=== PATIENT | female | born 1950 | race Caucasian/White ===

== ENCOUNTER 2020-06-17 13:29 | Inpatient (IN) | payer MEDICARE, OTHER, SELFPAY ==
[2020-06-17] VITALS (9 sets, daily range): BP systolic 76–141; BP diastolic 57–78; PULSE 78–150; RESP 14–26; TEMP 36.6–37.8; O2SAT 92–100; BMI 21.4
--- NOTE | 2020-06-17 14:05 | XRR_ITS ---
PROCEDURE INFORMATION: Exam: XR Chest, 1 View Exam date and time: 06/17/2020 2:07 PM Age: 70 years old Clinical indication: Other: Low BP; Additional info: Dyspnea/cough TECHNIQUE: Imaging protocol: XR of the chest Views: 1 view. COMPARISON: CR Chest 1 [place] [id number] 02/07/2017 7:45 PM FINDINGS: Lungs: Large lung volumes suggesting COPD. No acute infiltrate. Pleural space: Unremarkable. No pleural effusion. No pneumothorax. Heart/Mediastinum: Unremarkable. No cardiomegaly. Bones/joints: Unremarkable. XR/XR chest 1V portable [id number] IMPRESSION: No acute findings. Possible COPD with large lung volumes.
--- NOTE | 2020-06-17 14:05 | ECG_ITS ---
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 Measurements Intervals [place] Rate: 98 P: 68 AR: 167 QRS: 28 QRSD: 69 T: 56 QT: 326 QTc: 417 Interpretive Statements SINUS RHYTHM MINIMAL ST DEPRESSION [0.025+ mV ST DEPRESSION] Compared to ECG 02/07/2017 19:29:32 ST (T wave) deviation now present Electronically Signed On 06-18-2020 9:25:09 CHAINSTITCH FELLED SEAM OPERATOR by Laurie Lopez M.D. [email or web address]TOTUS Solutionsgeorge regional hospitalNeuroware.[facility].icix/store/NU/[id number] f
--- NOTE | 2020-06-17 14:07 | ED_ITS ---
HPI - Arrhythmia/Palpitations General: Chief Complaint: Abdominal Pain Stated Complaint: low bp/ dizziness/ faintness Time Seen by Provider: 06/17/20 13:46 History of Present Illness: HPI narrative: 70-year-old female presents with complaint of rapid heart rate. She gets this more often than usual its not sustained like this. 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 She has some epigastric discomfort. She has had this several times in the past and is even had evaluation including cardiac monitors but they were never able to capture the arrhythmia. She denies any pain radiating to her neck back or arms. MD complaint: rapid heart beat and heart racing Onset (ago): hour(s) Duration: constant Severity: moderate Context: occurred during rest Arrhythmia history: SVT (She thinks they may have told her she had SVT previously) Associated symptoms: Reports anxiety; Deny cough, diaphoresis, muscle cramps, nausea, paresthesias, pre-syncope, sense of impending doom, short of breath, syncope or vomiting Review of Systems Const: Denies: diaphoresis ENMT: Denies: throat pain, ear or mastoid pain, nasal discharge or nasal congestion Card: Denies: syncope or pre-syncope Resp: Denies: dyspnea, productive cough or non-productive cough GI: Denies: nausea or vomiting : Denies: flank pain, difficulty voiding, dysuria, urinary frequency or urinary urgency Musc: Denies: muscle cramps Skin/Breast: Denies: rash or pruritus Psych: Reports: anxiety Physical Exam Const: COMMON NORMALS: no acute distress GENERAL APPEARANCE: cooperative and comfortable ORIENTATION/CONSCIOUSNESS: Yes awake, Yes oriented to person, Yes oriented to place and Yes oriented to time HENMT: COMMON NORMALS: normocephalic, atraumatic and hearing grossly normal bilaterally HEAD & SCALP: normocephalic and atraumatic Eye: COMMON NORMALS: Equal, round and reactive pupils present, EOMs intact bilaterally, conjunctivae normal and no scleral icterus CONJUNCTIVA: Yes conjunctivae normal PUPIL: Yes Equal, round and reactive pupils present Neck/C-Spine: COMMON NORMALS: no JVD Resp: COMMON NORMALS: normal respiratory effort, No retractions, No use of accessory muscles and clear to auscultation bilaterally AUSCULTATION: clear to auscultation bilaterally Cardio: COMMON NORMALS: no JVD RATE: tachycardic RHYTHM: abnormal rhythm (SVT) GI: COMMON NORMALS: Soft to palpation and No hepatosplenomegaly present AUSCULTATION: Yes normoactive bowel sounds PALPATION: Yes Soft to palpation, No Tenderness to palpation present (GI), No Guarding due to palpation present (GI) and Yes No hepatosplenomegaly present Extremity: COMMON NORMALS: normal to inspection, capillary refill normal, no clubbing, cyanosis or edema, no calf tenderness and no pedal edema Neuro: SENSORIUM/ORIENTATION: Yes oriented to person, Yes oriented to place and Yes oriented to time Skin: COMMON NORMALS: no rashes or lesions noted GENERAL SKIN EXAM: no rashes or lesions noted Course Vital Signs: Vital signs: Vital Signs Temperature 97.8 F 06/17/20 13:31 Pulse Rate 88 06/17/20 17:30 Respiratory Rate 18 06/17/20 17:30 Blood Pressure 120/71 06/17/20 17:30 Pulse Oximetry 100 06/17/20 17:30 MDM - Arrhythmia/Palpitations MDM Narrative: Medical decision making narrative: Initial attempt to convert her SVT with 6 mg of adenosine failed did convert on 12 mg. Her symptoms have resolved. Further work-up pending. Delta troponin came back positive patient is symptom-free at this time we will give her Lovenox and aspirin ordering to put her on observation discussed Dr. Sheridan she will follow. I suspect the elevated troponin could likely be from heart strain from the sustained SVT but she will require further evaluation Lab Data: Labs: Lab Results 06/17/20 06/17/20 06/17/20 Range/Units 13:55 13:55 13:55 WBC 5.3 (4.0-10.0) 10^3/ uL RBC 5.04 (4.1-5.3) 10^6/u L Hgb 15.3 (11.5-15.3) g/dL Hct 47.5 H (37.0-47.0) % MCV 94.2 (81-99) fL MCH 30.4 (28.0-34.0) pg MCHC 32.2 (30.0-36.0) g/dL RDW 11.9 L (12.1-15.1) % Plt Count 244 (130-400) 10^3/c mm MPV 10.7 H (7.4-10.4) fL Neut % (Auto) 68.5 % Lymph % (Auto) 17.5 % [place] % (Auto) 12.6 % Eos % (Auto) 0.2 % Baso % (Auto) 1.0 % Neut # (Auto) 3.60 (1.8-7.7) 10^3/u L Lymph # (Auto) 0.9 (0.8-4.8) 10^3/u L [place] # (Auto) 0.7 (0.2-0.9) 10^3/u L Eos # (Auto) 0.0 (0.0-0.8) 10^3/u L Baso # (Auto) 0.1 (0.0-0.1) 10^3/u L Nucleated RBC % (a uto) 0 % Nucleated RBCs # 0.0 /100WBC Sodium 138 (136-145) mmol/L Potassium 4.4 (3.5-5.1) mmol/L Chloride 99 (98-107) mmol/L Carbon Dioxide 27 (22-29) mmol/L Anion Gap 16.4 (5-19) BUN 11 (8-23) mg/dL Creatinine 0.9 (0.5-0.9) mg/dL GFR Calculation Not Reportable Glucose 142 H (65-115) mg/dL Calculated Osmolal ity 288 (285-295) mOsm/k g Calcium 9.5 (8.5-10.5) mg/dL Magnesium 1.9 (1.7-2.3) mg/dL Total Bilirubin 0.5 (0.15-1.2) mg/dL AST 27 (0-32) U/L ALT 22 (0-33) U/L Alkaline Phosphata se 94 (35-105) IU/L Troponin T Baselin e 49 H (0-10) ng/L Troponin T 120 Min [place] (0-10) ng/L Delta Troponin T (0-10) ABS# Total Protein 6.8 (6.6-8.7) g/dL Albumin 4.6 (3.5-5.2) g/dL Globulin 2.2 (1.3-4.6) g/dL TSH 1.78 (0.27-4.20) uIU/ mL Free T4 1.10 (0.82-1.77) ng/d L 06/17/20 Range/Units 16:10 WBC (4.0-10.0) 10^3/ uL RBC (4.1-5.3) 10^6/u L Hgb (11.5-15.3) g/dL Hct (37.0-47.0) % MCV (81-99) fL MCH (28.0-34.0) pg MCHC (30.0-36.0) g/dL RDW (12.1-15.1) % Plt Count (130-400) 10^3/c mm MPV (7.4-10.4) fL Neut % (Auto) % Lymph % (Auto) % [place] % (Auto) % Eos % (Auto) % Baso % (Auto) % Neut # (Auto) (1.8-7.7) 10^3/u L Lymph # (Auto) (0.8-4.8) 10^3/u L [place] # (Auto) (0.2-0.9) 10^3/u L Eos # (Auto) (0.0-0.8) 10^3/u L Baso # (Auto) (0.0-0.1) 10^3/u L Nucleated RBC % (a uto) % Nucleated RBCs # /100WBC Sodium (136-145) mmol/L Potassium (3.5-5.1) mmol/L Chloride (98-107) mmol/L Carbon Dioxide (22-29) mmol/L Anion Gap (5-19) BUN (8-23) mg/dL Creatinine (0.5-0.9) mg/dL GFR Calculation Glucose (65-115) mg/dL Calculated Osmolal ity (285-295) mOsm/k g Calcium (8.5-10.5) mg/dL Magnesium (1.7-2.3) mg/dL Total Bilirubin (0.15-1.2) mg/dL AST (0-32) U/L ALT (0-33) U/L Alkaline Phosphata se (35-105) IU/L Troponin T Baselin e (0-10) ng/L Troponin T 120 Min [place] 72.68 H (0-10) ng/L Delta Troponin T 23.68 H* (0-10) ABS# Total Protein (6.6-8.7) g/dL Albumin (3.5-5.2) g/dL Globulin (1.3-4.6) g/dL TSH (0.27-4.20) uIU/ mL Free T4 (0.82-1.77) ng/d L Discharge Plan Discharge Patient Disposition: Placed in Observation Clinical Impression: SVT (supraventricular tachycardia), Elevated troponin level Condition: Stable Referrals: FADIA ARIZA MD [Primary Care Provider] - Coding Level of Care Code ED Paint Factory Worker for g Fwd Exam Comprehensive
[2020-06-17] MEDS: adenosine 3 mg/mL SDV 2mL 6 MG IVP (14:25)
[2020-06-17] MEDS: adenosine 3 mg/mL SDV 2mL 12 MG IVP (14:26)
[2020-06-17 14:46] LABS: Basophils # 0.1 10^3/uL (0.0-0.1); Eosinophils % 0.2 %; Hematocrit 47.5 % (37.0-47.0); Hemoglobin 15.3 g/dL (11.5-15.3); Lymphocytes # 0.9 10^3/uL (0.8-4.8); Lymphocytes % 17.5 %; Mean Corpuscular HGB Conc 32.2 g/dL (30.0-36.0); Mean Corpuscular Hemoglobin 30.4 pg (28.0-34.0); Mean Corpuscular Volume 94.2 fL (81-99); Mean Platelet Volume 10.7 fL (7.4-10.4); Monocytes # 0.7 10^3/uL (0.2-0.9); Monocytes % 12.6 %; Neutrophils % 68.5 %; Nucleated Red Blood Cells % 0 %; Platelet Count 244 10^3/cmm (130-400); Red Blood Count 5.04 10^6/uL (4.1-5.3); Red Cell Distribution Width 11.9 % (12.1-15.1); White Blood Count 5.3 10^3/uL (4.0-10.0)
[2020-06-17 15:15] LABS: Troponin(5th) Baseline 49 ng/L (0-10)
[2020-06-17 15:23] LABS: Alanine Aminotransferase 22 U/L (0-33); Albumin Level 4.6 g/dL (3.5-5.2); Alkaline Phosphatase 94 IU/L (35-105); Anion Gap 16.4 (5-19); Aspartate Amino Transferase 27 U/L (0-32); Blood Urea Nitrogen 11 mg/dL (8-23); Calcium 9.5 mg/dL (8.5-10.5); Carbon Dioxide 27 mmol/L (22-29); Chloride 99 mmol/L (98-107); Globulin 2.2 g/dL (1.3-4.6); Glucose 142 mg/dL (65-115); Magnesium 1.9 mg/dL (1.7-2.3); Osmolality Calculated 288 mOsm/kg (285-295); Potassium 4.4 mmol/L (3.5-5.1); Sodium 138 mmol/L (136-145); Thyroid Stimulating Hormone 1.78 uIU/mL (0.27-4.20); Total Bilirubin 0.5 mg/dL (0.15-1.2); Total Protein 6.8 g/dL (6.6-8.7)
--- NOTE | 2020-06-17 16:05 | ECG_ITS ---
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 Measurements Intervals [place] Rate: 87 P: 69 NC: 176 QRS: 31 QRSD: 72 T: 50 QT: 379 QTc: 457 Interpretive Statements SINUS RHYTHM WITH FREQUENT VENTRICULAR PREMATURE COMPLEXES NONSPECIFIC T-WAVE ABNORMALITY ABNORMAL RHYTHM ECG Compared to ECG 06/17/2020 14:00:30 Ventricular premature complex(es) now present T-wave abnormality now present ST (T wave) deviation no longer present Electronically Signed On 06-18-2020 9:29:22 BALLAST INSPECTOR by Laurie Lopez M.D. [email or web address] ([email or web address] medical centerOnyvaxhighland district hospital.myBarrister/store/ov/[id number]
[2020-06-17 16:48] LABS: Troponin 5 2HR 72.68 ng/L (0-10)
[2020-06-17 16:49] LABS: Troponin 5 2HR Delta 23.68 ABS# (0-10)
[2020-06-17] MEDS: enoxaparin 60 mg/0.6 mL Syringe SUBCUT (17:28)
[2020-06-17] MEDS: aspirin 81 mg Chew Tablet 324 MG PO (17:28)
--- NOTE | 2020-06-17 19:58 | PC.NURSE ---
Dr. Woo notified of patient getting Lovenox at 1730 in ED. There is a Lovenox dose due now. Ordered to change to get dose 24 hours after previous dose.
--- NOTE | 2020-06-17 19:59 | PM.HP ---
Providers/Chief Complaint Admitting Physician: Katia Andrew MD Primary Care Provider: Lisbet Chandra MD Chief Complaint: low bp/ dizzyness/ faintness History of Present Illness Marisa Iverson is a 70 year old female with no significant past medical history, who presents to [facility] due to complaints of fatigue, malaise, weakness, this morning. Patient tells me that she has been doing well recently, has had no significant ER visits, no recent hospitalization, no significant past medical history. She woke up this morning, she followed her usual routine, she fed her cat, but she felt quite profoundly weak, fatigued, malaise, which is very unusual for her. She went back to bed, slept for a little bit. It woke up again, it continued to feel fatigue. She did have some chest soreness in the left chest, nonradiating, no lightheadedness, no dizziness, no diaphoresis, no nausea, no vomiting, no epigastric discomfort, no back pain, she did have some feeling of palpitations but very minor. She did not think much of her symptoms, and because of her fatigue, she went back to bed, she slept for several hours. But again woke up, feeling again fatigued and tired, so she came to the emergency room. Patient tells me that in the past she has had issues with fast heart rate, was put on metoprolol, this was roughly maybe 3 years ago, but stopped taking the medication for 2 years, denies a history of any tachyarrhythmia or arrhythmia in the past. Denies a history of chest pain, no history of stress testing, no history of cardiovascular disease, no history of strokes, no history of COPD, no history of drug use, former smoker, denies any use of herbal supplementations. In the emergency room she was found to have SVT, required 6 mg of adenosine, did not convert, 12 mg of adenosine converted her into normal sinus rhythm, given her troponin elevations hospitalist team was called for admission. On the floor she was noted to have a temperature of 100, she is relatively asymptomatic, no fever for she is noticed, no cough, no shortness of breath, she does have periodic epigastric discomfort, nothing more than the usual, no known exposure to COVID-19. Review of Systems Const: Reports: fatigue and malaise; Denies: fever(s) or chills Eyes: Denies: change in vision or blurry vision ENMT: Denies: nasal congestion Resp: Denies: dyspnea, productive cough, non-productive cough or wheezing GI: Denies: abdominal pain, nausea, vomiting, hematemesis, diarrhea, constipation, hematochezia or melena : Denies: flank pain, dysuria or urinary frequency Musc: Denies: neck pain or back pain Skin/Breast: Denies: rash Neuro: Denies: headache(s), dizziness or vertigo Psych: Denies: anxiety or depression Endo: Denies: polyuria or polydipsia Medications/Allergies Home Medications Medication Instructions Recorded Confirmed Last Taken Type No Known Home Medications 06/17/20 06/17/20 Unknown History Allergies Allergy/AdvReac Type Severity Reaction Status Date / Time No Known Allergies Allergy Verified 06/17/20 13:37 PFSH Acute PFSH: Medical History (Updated 06/17/20 @ 20:07 by Juan Woo MD) No pertinent past medical history Surgical History (Updated 06/17/20 @ 20:05 by Juan Woo MD) No pertinent past surgical history Family History (Updated 06/17/20 @ 20:05 by Juan Woo MD) Mother Alzheimer's dementia Father CAD (coronary artery disease) Social History (Updated 06/17/20 @ 20:05 by Juan Woo MD) Smoking and tobacco status: former smoker Alcohol intake: never Substance/Drug Use: never Vitals/I&O/Wt Last Vital Signs Temp 100.0 F H 06/17/20 18:56 Pulse 85 06/17/20 18:56 Resp 18 06/17/20 18:56 BP 123/63 06/17/20 18:56 Pulse Ox 93 06/17/20 18:56 Weight last 48 hrs Weight 60.328 kg Physical Exam Const: COMMON NORMALS: no acute distress and patient oriented x3 GENERAL APPEARANCE: cooperative and comfortable HENMT: COMMON NORMALS: normocephalic HEAD & SCALP: normocephalic Eye: COMMON NORMALS: Equal, round and reactive pupils present and EOMs intact bilaterally GENERAL EYE: appearance normal, both eyes and all related structures PUPIL: Yes Equal, round and reactive pupils present Neck/C-Spine: COMMON NORMALS: full ROM, no lymphadenopathy, no JVD and Thyroid normal THYROID: Thyroid normal Lymph: LYMPHATIC: no lymphadenopathy noted Resp: COMMON NORMALS: normal respiratory effort, No retractions, No use of accessory muscles and clear to auscultation bilaterally AUSCULTATION: clear to auscultation bilaterally Cardio: COMMON NORMALS: no JVD, regular rate, regular rhythm, S1 normal heart sound present, S2 normal heart sound present, No gallops present (Cardio), No clicks present (Cardio) and No murmurs present (Cardio) RATE: regular rate RHYTHM: regular rhythm HEART SOUNDS: S1 normal heart sound present and S2 normal heart sound present GI: COMMON NORMALS: Normal to inspection, nondistended, normoactive bowel sounds present, Soft to palpation, non-tender and No hepatosplenomegaly present PALPATION: Yes Soft to palpation and Yes No hepatosplenomegaly present Extremity: COMMON NORMALS: normal to inspection, full ROM and no pedal edema Neuro: COMMON NORMALS: patient oriented x3, CN's II-XII intact bilaterally, moves all extremities and no focal motor deficits Psych: COMMON NORMALS: mental status grossly normal, Normal thought process present and cooperative THOUGHT PROCESS: Normal thought process present Data : 06/17/20 13:55 06/17/20 13:55 A&P Assessment and plan (1) SVT (supraventricular tachycardia): -Aborted with adenosine 6 mg, 12 mg -Currently normal sinus rhythm -We will continue telemetry monitoring Status: Acute (2) NSTEMI (non-ST elevated myocardial infarction): -No complaints of chest pain -Baseline troponin 49, 120 minutes 72.68, delta 22.68 -EKG does show minimal ST depressions in V5 V6 -We will continue to monitor serial EKGs, serial troponins, telemetry, monitor for chest pain -Start aspirin, statin -We will order cardiac echocardiogram -Have patient follow-up with cardiology outpatient for consideration of stress testing -No significant cardiovascular risk factors except age and family history -Full code -Lovenox for DVT prophylaxis Status: Acute (3) Fever: -Temperature 100 -She is relatively asymptomatic, hold off on further testing, she continues to have fevers we will do Covid and testing and flu testing Status: Acute Attestations Medical Necessity Statement*: Patient requires hospitalization, patient with observation, for SVT, NSTEMI Coding Level of Care Code Acute Director Community Organization for Chg Fwd Diagnoses SVT (supraventricular tachycardia) I47.1 NSTEMI (non-ST elevated myocardial infarction) I21.4 Fever R50.9
--- NOTE | 2020-06-17 20:05 | ECG_ITS ---
[facility] Test Date: 2020-06-17 Pat Name: Marisa Iverson Department: Room: 112 Gender: Female Comb Tender: checo GRANADOSB: 1950 Requested By: Jesus Manuel Blanton Order Number: [id number] Reading MD: Laurie Lopez M.D. Measurements Intervals [place] Rate: 75 P: 67 AK: 196 QRS: 44 QRSD: 66 T: 49 QT: 396 QTc: 443 Interpretive Statements SINUS RHYTHM WITH OCCASIONAL VENTRICULAR PREMATURE COMPLEXES Compared to ECG 06/17/2020 17:52:46 T-wave abnormality no longer present Electronically Signed On 06-18-2020 9:28:50 MOBILE APPLICATION DEVELOPER by Laurie Lopez M.D. [email or web address]/[id number]
[2020-06-17 20:12] LABS: Troponin 5 6HR 89.69 ng/L (0-10)
[2020-06-17 20:18] LABS: Troponin 5 6HR Delta 40.69 ng/L (0-12)
[2020-06-17] MEDS: atorvastatin 40 mg Tablet PO (20:23)
--- NOTE | 2020-06-17 20:24 | PC.NURSE ---
Patient arrived to the floor from the ED after report was received via phone. Patient is alert and oriented and ambulatory. Patient does not have any pain or any other complaints at this time. Patient is in SR on monitor and on RA. Patient has been oriented to her room and has call light within reach.
[2020-06-17 20:47] LABS: Procalcitonin 0.09 ng/mL (0-0.5)
--- NOTE | 2020-06-17 23:26 | PC.NURSE ---
Patient has no complaints at this time. Will monitor.
[2020-06-18] VITALS (7 sets, daily range): BP systolic 108–136; BP diastolic 61–72; PULSE 73–88; RESP 13–27; TEMP 36.8–37.8; O2SAT 92–97
[2020-06-18 00:49] LABS: Add Urine Microscopic? YES; Bilirubin Urine Neg (Negative); Blood Urine Neg (Negative); Glucose Urine UA Norm (Normal); Ketones Urine 1+ (Negative); Leukocyte Esterase Urine Trace (Negative); Nitrate Urine Negative (Negative); Protein Urine Neg (Negative); Specific Gravity, Urine 1.025 (1.005-1.030); Urine Appearance Clear (CLEAR); Urine Color Yellow (Yellow); Urobilinogen Urine Norm (Negative); pH Urine 5 (5-7)
[2020-06-18 00:50] LABS: Add Urine Culture? No; Bacteria Urine TRACE /hpf; Hyaline Casts Urine 0-4 /lpf; Mucus Urine 4+ /hpf; RBC Urine 0-4 /hpf (0-2)
[2020-06-18] MEDS: enoxaparin 60 mg/0.6 mL Syringe SUBCUT ×2 (04:39→17:14)
[2020-06-18 05:51] LABS: Basophils % 0.9 %; Eosinophils % 0.6 %; Hemoglobin 13.6 g/dL (11.5-15.3); Lymphocytes # 1.1 10^3/uL (0.8-4.8); Lymphocytes % 30.1 %; Mean Corpuscular HGB Conc 32.4 g/dL (30.0-36.0); Mean Corpuscular Hemoglobin 30.5 pg (28.0-34.0); Mean Corpuscular Volume 94.2 fL (81-99); Mean Platelet Volume 10.1 fL (7.4-10.4); Monocytes # 0.5 10^3/uL (0.2-0.9); Monocytes % 15.1 %; Neutrophils # 1.87 10^3/uL (1.8-7.7); Nucleated Red Blood Cells % 0 %; Platelet Count 192 10^3/cmm (130-400); Red Blood Count 4.46 10^6/uL (4.1-5.3); Red Cell Distribution Width 11.8 % (12.1-15.1); White Blood Count 3.5 10^3/uL (4.0-10.0)
[2020-06-18 06:17] LABS: Alanine Aminotransferase 17 U/L (0-33); Albumin Level 3.7 g/dL (3.5-5.2); Alkaline Phosphatase 71 IU/L (35-105); Aspartate Amino Transferase 24 U/L (0-32); Blood Urea Nitrogen 14 mg/dL (8-23); Calcium 8.8 mg/dL (8.5-10.5); Carbon Dioxide 26 mmol/L (22-29); Chloride 102 mmol/L (98-107); Globulin 1.9 g/dL (1.3-4.6); Glucose 87 mg/dL (65-115); Osmolality Calculated 284 mOsm/kg (285-295); Phosphorus 4.4 mg/dL (2.5-4.5); Sodium 137 mmol/L (136-145); Total Bilirubin 0.4 mg/dL (0.15-1.2); Total Protein 5.6 g/dL (6.6-8.7)
[2020-06-18] MEDS: aspirin 81 mg EC Tablet PO (08:32)
[2020-06-18] MEDS: pneumococcal (23 valent) SDV 0.5 mL IM (08:32)
--- NOTE | 2020-06-18 09:30 | P.PN_ITS ---
Subjective Subjective: Interval history: Hemodynamically stable, low grade temp (100 F), HR wnl, on therapeutic lovenox due to NSTEMI. She is resting comfortably in bed, no apparent distress, no chest discomfort. Echo noted. Case discussed with Dr. Lopez and will plan on stress testing tomorrow. Medications: Reviewed: Yes Medication Review Details: Current Medications Generic Name Dose Route Start Last Admin Trade Name Saira PRN Reason Stop Dose Admin Aspirin 81 mg 06/17/20 20:10 06/18/20 08:32 Aspirin Ec PO 81 mg DAILY YUN Administration Atorvastatin Calci um 40 mg 06/17/20 21:00 06/17/20 20:23 Lipitor PO 40 mg BEDTIME YUN Administration Enoxaparin Sodium 60 mg 06/18/20 05:30 06/18/20 04:39 Lovenox SUBCUT 60 mg Q12H YUN Administration Vitals/I&O/Wt Last Vital Signs Temp 100.0 F H 06/18/20 08:02 Pulse 86 06/18/20 08:02 Resp 18 06/18/20 08:02 BP 116/66 06/18/20 08:02 Pulse Ox 97 06/18/20 08:02 06/17/20 06/18/20 06/18/20 22:59 06:59 14:59 Intake Total 300 / 300 240 / 240 Output Total 100 / 100 Balance 200 / 200 240 / 240 Weight last 48 hrs Weight 60.328 kg Physical Exam Const: COMMON NORMALS: no acute distress, patient oriented x3 and alert GENERAL APPEARANCE: cooperative and comfortable ORIENTATION/CONSCIOUSNESS: Yes awake OTHER: -looks appropriate for age HENMT: COMMON NORMALS: normocephalic, atraumatic, hearing grossly normal bilaterally and moist oral mucous membranes HEAD & SCALP: normocephalic and atraumatic Eye: COMMON NORMALS: Equal, round and reactive pupils present, EOMs intact bilaterally and conjunctivae normal CONJUNCTIVA: Yes conjunctivae normal PUPIL: Yes Equal, round and reactive pupils present Neck/C-Spine: COMMON NORMALS: full ROM GENERAL: Yes normal visual inspection and Yes trachea midline Resp: COMMON NORMALS: normal respiratory effort, No retractions, No use of accessory muscles and clear to auscultation bilaterally EFFORT & INSPECTION: Yes able to speak in complete sentences, Yes symmetric chest movement and No tachypneic AUSCULTATION: clear to auscultation bilaterally OTHER: -on RA Cardio: COMMON NORMALS: regular rate, regular rhythm, S1 normal heart sound present, S2 normal heart sound present and No murmurs present (Cardio) RATE: regular rate RHYTHM: regular rhythm HEART SOUNDS: S1 normal heart sound present and S2 normal heart sound present GI: COMMON NORMALS: Normal to inspection, nondistended, normoactive bowel sounds present, Soft to palpation and non-tender PALPATION: Yes Soft to palpation Extremity: COMMON NORMALS: normal to inspection, full ROM and no clubbing, cyanosis or edema; negative for no pedal edema Neuro: COMMON NORMALS: patient oriented x3, moves all extremities, no focal motor deficits, no sensory deficits noted and gait normal SENSORIUM/ORIENTATION: Yes alert Psych: COMMON NORMALS: mental status grossly normal, Normal thought process present, cooperative, normal affect and speech normal SPEECH: Yes normal speech THOUGHT PROCESS: Normal thought process present Skin: COMMON NORMALS: no rashes or lesions noted, no jaundice, no petechiae and no mottling GENERAL SKIN EXAM: no rashes or lesions noted Data : 06/18/20 05:24 06/18/20 05:24 A&P Assessment and plan (1) NSTEMI (non-ST elevated myocardial infarction): -noted troponin elevation with significant delta of 41 -minimal ST depression on initial ECG -telemetry monitoring -VSS; continue to monitor -on therapeutic lovenox, ASA, statin -Echo: EF=68%, no RWMA, trace to mild TR, trace IL -Cardiology evaluation by Dr. Lopez appreciated; stress testing tomorrow, keep NPO after midnight Status: Acute (2) SVT (supraventricular tachycardia): -converted to NSR after 12 mg dose of adenosine given in ED -telemetry monitoring -K-4, Mg-2, TSH wnl Status: Acute (3) Fever: -low grade temp, no leukocytosis -UA indicative of infection, f/u urine cx -CXR unremarkable -start on ceftriaxone -continue to monitor vital signs Status: Acute Qualifiers: Fever type: unspecified Qualified Code(s): R50.9 - Fever, unspecified Additional A&P Information -regular diet as tolerated -DVT ppx not needed as on therapeutic lovenox -Dispo: home -Code status: FULL code -change to inpatient status due to need for additional workup including nuclear stress testing. Attestations Medical Necessity Statement*: Patient requires hospitalization for continued management of NSTEMI including stress testing, treatment of UTI. Time Spent in Patient Care: 16 - 35 minutes (>than 50% of time spent in counselling and/or direct pt care on unit) . Coding Level of Care Code Acute Baggagemaster for [facility] Fwd Exam Comprehensive Diagnoses NSTEMI (non-ST elevated myocardial infarction) I21.4 SVT (supraventricular tachycardia) I47.1 Fever R50.9 Fever type: unspecified
--- NOTE | 2020-06-18 09:37 | PM.CONSULT ---
Providers/Reason For Consult Consulting Physican/Specialty*: Dr. Lopez, Cardiology Reason for Consult*: Elevated troponin and SVT Attending Physician: Katia Andrew MD Primary Care Provider: Lisbet Chandra MD History of Present Illness History of Present Illness Marisa Iverson is a 70 year old female with PMhx of palpitation previously on metoporlol and was seen by Dr. Nguyen at [facility]. She keeps a diary of her episodes and recently her episodes have been on last Friday and then yesterday morning she woke up feeling bad, fatigued and tired. She could not make her breakfast. Her HR was in 150-160's on the pulse ox and she presented to ER for further evaluation. I do have EKG strips to support it. It seems like per documentation she was in SVT and recieved adenosine 6 mg followed by 12 mg lead to conversion to NSR. EKG's showing NSR with occasional PVC's. No significant ST-T wave changes. Troponin T was elevated and hence I have been asked to evaluate the patient. Review of Systems General: Reports: 10 or more systems reviewed and unremarkable except in HPI and below Const: Reports: fatigue; Denies: fever(s) or chills Eyes: Denies: blurry vision ENMT: Denies: epistaxis Card: Denies: chest pain Resp: Denies: dyspnea GI: Denies: abdominal pain, nausea or vomiting : Denies: hematuria Musc: Denies: extremity swelling Skin/Breast: Denies: rash Neuro: Denies: headache(s) Psych: Denies: anxiety or depression Endo: Denies: polyuria Cam/Lymph: Denies: petechiae or purpura All/Imm: Denies: urticaria Meds/Allergies Home Medications and Allergies Home Medications Medication Instructions Recorded Confirmed Last Taken Type No Known Home Medications 06/17/20 06/17/20 Unknown History Allergies Allergy/AdvReac Type Severity Reaction Status Date / Time No Known Allergies Allergy Verified 06/17/20 20:25 Current Medications Current Medications Generic Name Dose Route Start Last Admin Trade Name Freq PRN Reason Stop Dose Admin Aspirin 81 mg 06/17/20 20:10 06/18/20 08:32 Aspirin Ec PO 81 mg DAILY YUN Administration Atorvastatin Calcium 40 mg 06/17/20 21:00 06/17/20 20:23 Lipitor PO 40 mg BEDTIME YUN Administration Enoxaparin Sodium 60 mg 06/18/20 05:30 06/18/20 04:39 Lovenox SUBCUT 60 mg Q12H YUN Administration PFSH Acute PFSH: Medical History (Updated 06/18/20 @ 09:34 by Katia Andrew MD) No pertinent past medical history Surgical History No pertinent past surgical history Family History Mother Alzheimer's dementia Father CAD (coronary artery disease) Social History Smoking and tobacco status: former smoker Alcohol intake: never Substance/Drug Use: never Vitals/I&O/Wt Last Vital Signs Temp 100.0 F H 06/18/20 08:02 Pulse 86 06/18/20 08:02 Resp 18 06/18/20 08:02 BP 116/66 06/18/20 08:02 Pulse Ox 97 06/18/20 08:02 06/17/20 06/18/20 06/18/20 22:59 06:59 14:59 Intake Total 300 / 300 240 / 240 Output Total 100 / 100 Balance 200 / 200 240 / 240 Weight last 48 hrs Weight 133 lb Physical Exam Const: COMMON NORMALS: no acute distress, patient oriented x3 and alert GENERAL APPEARANCE: cooperative, comfortable, well kempt and well hydrated HENMT: COMMON NORMALS: normocephalic, atraumatic, hearing grossly normal bilaterally, external ears normal and Normal external nose present HEAD & SCALP: normocephalic and atraumatic FACE & SINUS: normal facial exam NOSE: Normal external nose present EXTERNAL EAR: Yes external ears normal Eye: COMMON NORMALS: Equal, round and reactive pupils present, EOMs intact bilaterally, conjunctivae normal and no scleral icterus GENERAL EYE: appearance normal, both eyes and all related structures ALIGNMENT: Yes alignment normal CONJUNCTIVA: Yes conjunctivae normal SCLERA: sclerae normal PUPIL: Yes Equal, round and reactive pupils present Neck/C-Spine: COMMON NORMALS: no lymphadenopathy, supple, no JVD and Thyroid normal GENERAL: Yes normal visual inspection, Yes trachea midline and No Mass present (neck) THYROID: Thyroid normal CAROTIDS: Yes normal carotid upstroke CERVICAL SPINE: Yes cervical ROM normal Lymph: LYMPHATIC: no lymphadenopathy noted Chest: COMMONS NORMALS: normal inspection of the chest and normal palpation of entire chest wall CHEST: Yes Symmetrical chest wall rise, No mass, No tenderness, No Surgical scars present (Chest) and No rash BREAST/AXILLA INSPECTION: Yes normal inspection of the axillae Resp: COMMON NORMALS: clear to auscultation bilaterally EFFORT & INSPECTION: Yes able to speak in complete sentences, No respiratory distress and No labored AUSCULTATION: clear to auscultation bilaterally, no crackles, no rales, no rhonchi, no wheezes and vesicular breath sounds Cardio: COMMON NORMALS: no JVD, regular rate, regular rhythm, S1 normal heart sound present, S2 normal heart sound present and Peripheral pulses 2+ throughout PALPATION: normal PMI RATE: regular rate RHYTHM: regular rhythm HEART SOUNDS: S1 normal heart sound present, S2 normal heart sound present, no gallops and no murmurs BRUITS: no abdominal aortic bruits and no carotid bruits PERIPHERAL PULSES: Peripheral pulses 2+ throughout, radial pulses present, posterior tibial pulses present and dorsalis pedis present GI: COMMON NORMALS: Soft to palpation and No hepatosplenomegaly present AUSCULTATION: Yes normoactive bowel sounds PALPATION: Yes Soft to palpation, No Tenderness to palpation present (GI), No Guarding due to palpation present (GI), No Rigid due to palpation, Yes No hepatosplenomegaly present, No Pulsatile mass present and No Ascites present PERCUSSION: tympanic to percussion Extremity: GENERAL: No calf tenderness, No cyanosis, Yes edema and No pallor Neuro: COMMON NORMALS: patient oriented x3, CN's II-XII intact bilaterally, no focal motor deficits, no sensory deficits noted and gait normal SENSORIUM/ORIENTATION: Yes alert Psych: COMMON NORMALS: Normal thought process present and speech normal APPEARANCE: Yes well kempt SPEECH: Yes normal speech MOOD & AFFECT: Yes euthymic mood THOUGHT PROCESS: Normal thought process present THOUGHT CONTENT: Yes Normal thought content present Skin: HAIR: normal NAILS: normal and no clubbing Data Labs: Other Labs: Laboratory Tests 06/17/20 06/17/20 06/17/20 13:55 16:10 19:33 Troponin T Baselin e 49 H Troponin T 120 Min nicholas 72.68 H Troponin T Hi Sens 6Hr 89.69 H A&P Assessment and plan (1) SVT (supraventricular tachycardia): Vagal maneuvers taught -I will start her on low dose metoprolol on discharge. Status: Acute (2) Elevated troponin level: Likely NSTEMI type 2 -continue ASA, statin. -Normal LV function and no RWMA on echo. -Plan for exercise MPI tomorrow. Status: Acute (3) Fever: Status: Acute Qualifiers: Fever type: unspecified Qualified Code(s): R50.9 - Fever, unspecified Additional A&P Information Former smoker Thank you for allowing me to participate in patient's care. Please feel free to call with questions or concerns. Consult Attestations Medical Necessity Statement: Needs hospital stay for SVT and NSTEMI Time Spent in Patient Care: Greater than 35 minutes (>than 50% of time spent in counselling and/or direct pt care on unit). Coding Level of Care Code Acute Bread And Pastry Baker for Forrest Ahumada Diagnoses SVT (supraventricular tachycardia) I47.1 Elevated troponin level R77.8 Fever R50.9 Fever type: unspecified
[2020-06-18] MEDS: cefTRIAXone 1,000 MG in sodium chloride 0.9% (plus) 50 ML 100 MG IV (10:03)
[2020-06-18 12:16] LABS: Troponin T (5th) Once 61 ng/L (0-10)
--- NOTE | 2020-06-18 18:11 | PC.NURSE ---
Patient done well this shift no complaints of chest pain or irregular Heart rate or beat noted patient vital signs have been stable although patient had a mild temp through out shift. patient has done well with ambulation and personal hygiene patient is alert and oriented. patient verbalizes plan of care for stress test tomorrow.
[2020-06-18] MEDS: atorvastatin 40 mg Tablet PO (19:15)
--- NOTE | 2020-06-18 19:40 | PC.NURSE ---
Patient has no complaints at this time.
--- NOTE | 2020-06-18 20:08 | USCV_ITS ---
Marisa Iverson Age: 70 Gender: F : 1950 Exam Date: 06/18/2020 09:25 Ordering Phys: Juan Woo MD Technologist: Miri Cerrato [place] [facility] [place]: SOB BP: 116 / 66 HR: 82 Rhythm: Sinus Technical Quality: Adequate MEASUREMENTS (Male / Female) Normal Values 2D ECHO LV Diastolic Diameter PLAX 3.1 cm 4.2 - 5.9 / 3.9 - 5.3 cm LV Systolic Diameter PLAX 2.3 cm LV Chamber Size 2.9 cm IVS Diastolic Thickness 1.7 cm 0.6 - 1.0 / 0.6 - 0.9 cm IVS Systolic Thickness 1.8 cm LVPW Diastolic Thickness 0.8 cm 0.6 - 1.0 / 0.6 - 0.9 cm LVPW Systolic Thickness 1.3 cm RV Chamber Size 2.9 cm LVOT Diameter 2.0 cm LV Ejection Fraction 2D Teich 52.6 % LV Ejection Fraction MOD 2C 63.9 % LV Ejection Fraction 2C AL 67.6 % LA Diameter 2.2 cm LA Width 1.8 cm LA Height 3.3 cm RA Width 2.2 cm RA Height 3.5 cm Aorta at Sinotubular Diameter 2.7 cm M-MODE LV Diastolic Diameter MM 3.1 cm 4.2 - 5.9 / 3.9 - 5.3 cm LV Systolic Diameter MM 2.0 cm LV Ejection Fraction MM Teich 63.6 % IVS Diastolic Thickness MM 1.2 cm 0.6 - 1.0 / 0.6 - 0.9 cm IVS Systolic Thickness MM 1.4 cm LVPW Diastolic Thickness MM 1.1 cm 0.6 - 1.0 / 0.6 - 0.9 cm LVPW Systolic Thickness MM 1.3 cm RV Diastolic Diameter MM 1.6 cm Aortic Annulus Diameter 2.9 cm LA Ao Ratio MM 0.7 MV E Point Septal Separation 0.5 cm DOPPLER AV Peak Velocity 104.0 cm/s LVOT Peak Velocity 89.0 cm/s AV Area Cont Eq vti 3.3 cm squared AV Area Cont Eq pk 2.7 cm squared MV Area PHT 2.6 cm squared Mitral E to A Ratio 0.7 MV E' Velocity 26.5 cm/s Mitral E to MV E' Ratio 6.2 Mitral E to LV E' Lateral Ratio 5.4 Mitral E to LV E' Septal Ratio 7.4 TR Peak Velocity 189.8 cm/s TR Peak Gradient 14.4 mmHg TV Peak E Velocity 53.0 cm/s Right Atrial Pressure 3.0 mmHg Pulmonary Artery Systolic Pressu 17.4 mmHg PV Peak Velocity 59.0 cm/s RV Acceleration Time 0.1 s RV Ejection Time 0.3 s RV AcT/ET 0.4 FINDINGS Left Ventricle Normal left ventricular size, systolic function and wall thickness, with no regional wall motion abnormalities. Left ventricular ejection fraction is estimated at 68 %. Normal diastolic function. Right Ventricle Normal right ventricular size and systolic function. Right ventricular systolic pressure 17.4 mmHg. Right Atrium Normal right atrial size. Left Atrium Normal left atrial size. Mitral Valve Structurally normal mitral valve. No mitral valve stenosis. No mitral valve regurgitation. Aortic Valve Structurally normal trileaflet aortic valve. No aortic valve stenosis. No aortic valve regurgitation. Tricuspid Valve Structurally normal tricuspid valve. No tricuspid valve stenosis. Trace to mild tricuspid valve regurgitation. Pulmonic Valve Structurally normal pulmonic valve. No pulmonary valve stenosis. Trace pulmonary valve regurgitation. Pericardium No pericardial effusion. Aorta Normal size aortic root. CONCLUSIONS 1. Normal left ventricular size, systolic function and wall thickness, with no regional wall motion abnormalities. Left ventricular ejection fraction is estimated at 68 %. Normal diastolic function. 2. Normal pulmonary artery pressure. 3. No significant valvular abnormality. 4. No pericardial effusion. 5. No prior similar studies to compare. Laurie Lopez MD (Electronically Signed) Final Date: 18 June 2020 18:25 S
--- NOTE | 2020-06-18 22:47 | PC.NURSE ---
Patient is resting comfortably with eyes closed. Will monitor.
[2020-06-19] VITALS (7 sets, daily range): BP systolic 127–164; BP diastolic 24–79; PULSE 76–99; RESP 18–23; TEMP 36.4–37.2; O2SAT 95–97
--- NOTE | 2020-06-19 06:00 | ECG_ITS ---
[facility] Test Date: 2020-06-19 Pat Name: Marisa Iverson Department: Room: 112 Gender: Female Project Designer: Ophelia Gallo : 1950 Requested By: Laurie Lopez Order Number: [id number] Juanis MD: Michael Kim M.D. Interpretive Statements NAME OF STUDY: Exercise SESTAMIBI STRESS TEST INDICATION: Chest Pain, PROCEDURE: The baseline electrocardiogram showed sinus tachycardia with a rate of 107 bpm. Poor R wave progression. Some nonspecific T wave changes. At the baseline, the patient's blood pressure was 141/82 mm Hg with a heart rate of 107. The patient exercised for 5 minutes and 40 seconds on a standard Davi protocol. Patient attained a maximum heart rate of 130 beats per minute(87% of the maximum predicted heart rate) with a blood pressure at the peak exercise of 205/75 mm Hg. The EKG at the peak exercise revealed some nonspecific ST-T changes in the inferolateral leads. Patient did not have any chest pain or any significant arrhythmis with the exercise Sestamibi was injected 1 minute prior to the peak exercise During the recovery phase, there were no new changes. Blood pressure at the end of the recovery phase was 155/74 mm Hg with a heart rate of 94 per minute. CONCLUSION: 1. Nonspecific EKG changes with the [treadmill exercise 2. No exercise-induced chest pain or cardiac arrhythmia 3. Impaired exercise tolerance, attained a maximum of 7.0 METs 4. Sestamibi/Sestamibi perfusion results pending; see separate report. Electronically Signed On 06-19-2020 10:09:06 GROOVER OPERATOR by Michael Kim M.D. [email or web address] - [facility], [id number]
[2020-06-19] MEDS: enoxaparin 60 mg/0.6 mL Syringe SUBCUT (06:10)
[2020-06-19 06:52] LABS: Chol HDL Ratio 2.85 mg/dL (0.0-4.40); Cholesterol 151 mg/dL (0-200); HDL Cholesterol 53 mg/dL (60-100); LDL Cholesterol Calculated 76 mg/dL (50-129); LDL HDL Ratio 1.43 RATIO (0.00-3.22); Triglycerides 112 mg/dL (0-150)
[2020-06-19 06:53] LABS: Alanine Aminotransferase 16 U/L (0-33); Albumin Level 3.5 g/dL (3.5-5.2); Alkaline Phosphatase 73 IU/L (35-105); Anion Gap 13.1 (5-19); Aspartate Amino Transferase 20 U/L (0-32); Blood Urea Nitrogen 15 mg/dL (8-23); Calcium 8.5 mg/dL (8.5-10.5); Carbon Dioxide 27 mmol/L (22-29); Chloride 106 mmol/L (98-107); Globulin 2.4 g/dL (1.3-4.6); Glucose 92 mg/dL (65-115); Magnesium 1.9 mg/dL (1.7-2.3); Osmolality Calculated 294 mOsm/kg (285-295); Potassium 4.1 mmol/L (3.5-5.1); Sodium 142 mmol/L (136-145); Total Bilirubin 0.2 mg/dL (0.15-1.2); Total Protein 5.9 g/dL (6.6-8.7)
--- NOTE | 2020-06-19 07:46 | PC.NURSE ---
patient off unit at this time for stress test; patient was alert and oriented and transported by staff for testing via wheel chair.
[2020-06-19] MEDS: aspirin 81 mg EC Tablet PO (09:33)
[2020-06-19] MEDS: cefTRIAXone 1,000 MG in sodium chloride 0.9% (plus) 50 ML 100 MG IV (09:36)
--- NOTE | 2020-06-19 11:16 | PM.DCS ---
Discharge Providers Date of Admission: 06/18/20 18:20 Date of Discharge: June 19, 2020 Attending Provider at Admission: Katia Andrew MD Attending Provider at Discharge: Trevor Bonilla MD Primary Care Provider: Lisbet Ariza MD Diagnoses at Discharge Discharge Diagnosis (1) SVT (supraventricular tachycardia): Status: Resolved (2) Elevated troponin level: Status: Resolved (3) Fever: Status: Resolved Qualifiers: Fever type: unspecified Qualified Code(s): R50.9 - Fever, unspecified Reason for Visit Reason for Visit: low bp/ dizzyness/ faintness Hospital Course Hospital Course 70 year old female with no significant past medical history, was admitted with c/o fatigue, malaise, weakness,upon arrival in the ER she was found to be in SVT and received 2 doses adenosine 6 mg and 12 mg and converted to normal sinus rhythm, she also had elevated troponin on admission likely type II M.I. She underwent. Exercise SESTAMIBI STRESS TEST: 1. Nonspecific EKG changes with the [treadmill exercise 2. No exercise-induced chest pain or cardiac arrhythmia 3. Impaired exercise tolerance, attained a maximum of 7.0 METs. Sestamibi/Sestamibi perfusion : 1. Myocardial perfusion imaging is normal. 2. Overall left ventricular systolic function is normal without regional wall motion abnormalities. 3. The left ventricular ejection fraction is normal with a value of 74%. 4. Scan indicates low risk for cardiac events. 2D Echo : 1. Normal left ventricular size, systolic function and wall thickness, with no regional wall motion abnormalities. Left ventricular ejection fraction is estimated at 68 %. Normal diastolic function. 2. Normal pulmonary artery pressure. 3. No significant valvular abnormality. 4. No pericardial effusion. 5. No prior similar studies to compare. Patient had no similar episode while inpatient.At the time of discharge she was not complaining of any chest pain, sob, palpitation,daiphoresis. She is being discharged in stable condition on Metoprolol succinate ER 50 mg oral daily as well as Aspirin 81 mg oral daily. She will follow up with her PCP as well with cardiology as outpatient. Physical Exam Const: COMMON NORMALS: patient oriented x3 HENMT: COMMON NORMALS: normocephalic, atraumatic, hearing grossly normal bilaterally and external ears normal HEAD & SCALP: normocephalic and atraumatic EXTERNAL EAR: Yes external ears normal Eye: COMMON NORMALS: no scleral icterus GENERAL EYE: appearance normal, both eyes and all related structures Chest: COMMONS NORMALS: normal inspection of the chest and normal palpation of entire chest wall CHEST: Yes Symmetrical chest wall rise Resp: COMMON NORMALS: normal respiratory effort, No retractions, No use of accessory muscles and clear to auscultation bilaterally EFFORT & INSPECTION: Yes symmetric chest movement AUSCULTATION: clear to auscultation bilaterally Cardio: COMMON NORMALS: regular rate, regular rhythm, S1 normal heart sound present, S2 normal heart sound present, No gallops present (Cardio), No murmurs present (Cardio), No rub (Cardio) and Peripheral pulses 2+ throughout RATE: regular rate RHYTHM: regular rhythm HEART SOUNDS: S1 normal heart sound present and S2 normal heart sound present PERIPHERAL PULSES: Peripheral pulses 2+ throughout GI: COMMON NORMALS: Normal to inspection, nondistended, normoactive bowel sounds present, Soft to palpation, non-tender, No hepatosplenomegaly present and no masses AUSCULTATION: Yes normoactive bowel sounds PALPATION: Yes Soft to palpation and Yes No hepatosplenomegaly present RECTAL EXAM: deferred Extremity: COMMON NORMALS: no clubbing, cyanosis or edema and no pedal edema Neuro: COMMON NORMALS: patient oriented x3 Discharge Data Data Completed and Pending: Completed Studies During Hospitalization Category Date Time Status Sestamibi Stress Test Request Routi ne Exams 06/19/20 06:00 Completed XR chest 1V nanci ble [id number] Stat Exams 06/17/20 14:05 Completed NM gary perf SPECT r/s* [id number] Routin e Nuc Med 06/19/20 15:24 Completed CV echo complete* [id number] Routine Ultrasound 06/18/20 20:08 Completed Pending at discharge Category Date Time Status Sestamibi Stress Test Request Routi ne Exams 06/18/20 15:23 Stop Req Comprehensive Met abolic Panel AM LA BS Lab 06/20/20 04:00 Ordered Magnesium AM LABS Lab 06/20/20 04:00 Ordered Phosphorus AM LAB S Lab 06/20/20 04:00 Ordered Urine Culture Rou za Lab 06/18/20 00:20 Received Labs from last 24 hours 06/19/20 06/19/20 06/18/20 04:18 04:18 05:24 Sodium 142 Potassium 4.1 Chloride 106 Carbon Dioxide 27 Anion Gap 13.1 BUN 15 Creatinine 0.7 GFR Calculation Not Reportable Glucose 92 Calculated Osmolal ity 294 Calcium 8.5 Phosphorus 4.0 Magnesium 1.9 Total Bilirubin 0.2 AST 20 ALT 16 Alkaline Phosphata se 73 Troponin T Gen 5 n g/L 61 H Total Protein 5.9 L Albumin 3.5 Globulin 2.4 Triglycerides 112 Cholesterol 151 LDL Cholesterol, C alc 76 HDL Cholesterol 53 L LDL/HDL Ratio 1.43 Cholesterol/HDL Ra sue 2.85 Vitals: Last Vital Signs Temp 98.0 F 06/19/20 08:00 Pulse 80 06/19/20 09:22 Resp 18 06/19/20 09:22 BP 127/24 06/19/20 09:22 Pulse Ox 97 06/19/20 09:22 Discharge Plan Discharge Patient Disposition: Home Condition: Stable Prescriptions: New aspirin 81 mg tablet,delayed release (DR/EC) 81 mg PO DAILY Qty: 30 RF: 0 metoprolol succinate 50 mg tablet extended release 24 hr 50 mg PO DAILY Qty: 30 RF: 0 Discharge Orders: Discharge Order (Routine); Ordered 06/19/20 Ordered By: Trevor Bonilla Referrals: LISBET ARIZA MD [Primary Care Provider] - Laurie Lopez MD [Physician] - 6 Weeks (You have a cardiology followup with Dr. Lopez at [facility] on July 31 at 8:15am.) Discharge Diet: Usual diet Discharge Activity: Resume usual activity Patient Instructions: Metoprolol (By mouth), Aspirin (By mouth), Myocardial Infarction (DC), Myocardial Infarction (GEN), Supraventricular Tachycardia (DC), Supraventricular Tachycardia (GEN), Chest Pain Stoplight, Post Heart Attack Stoplight Discharge Attestations Time Spent in Discharge Care*: greater than 30 min Specific Discharge Activities: educating patient, educating and/or supporting family/caregiver, discussing with pcp/other providers, discussing with skilled nursing case manager/social workers/dc planners, documenting/other paperwork and evaluating patient/reviewing data Status at Discharge: Cognitive status at discharge: cognitively intact, Behavioral status at discharge: cooperative, Functional status at discharge: independent ambulation Overall status at discharge: patient is back to baseline Quality Metrics Clinical Quality Measures During this hospital stay, did patient experience: None Coding Level of Care Code Acute Percussion Tuner for g Fwd Diagnoses SVT (supraventricular tachycardia) I47.1 Elevated troponin level R77.8 Fever R50.9 Fever type: unspecified
--- NOTE | 2020-06-19 13:10 | P.PN_ITS ---
Subjective Subjective: Interval history: She is doing well. No complaints Medications: Reviewed: Yes Vitals/I&O/Wt Last Vital Signs Temp 98.9 F 06/19/20 11:45 Pulse 76 06/19/20 11:45 Resp 23 H 06/19/20 11:45 BP 132/79 06/19/20 11:45 Pulse Ox 97 06/19/20 11:45 06/18/20 06/19/20 06/19/20 22:59 06:59 14:59 Intake Total 1360 / 1890 1989 480 / 480 Balance 1360 / 1890 1989 480 / 480 Weight last 48 hrs Weight 133 lb Physical Exam Const: COMMON NORMALS: no acute distress, patient oriented x3 and alert GENERAL APPEARANCE: cooperative, comfortable, well kempt and well hydrated HENMT: COMMON NORMALS: normocephalic, atraumatic, hearing grossly normal bilaterally, external ears normal and Normal external nose present HEAD & SCALP: normocephalic and atraumatic FACE & SINUS: normal facial exam NOSE: Normal external nose present EXTERNAL EAR: Yes external ears normal Eye: COMMON NORMALS: Equal, round and reactive pupils present, EOMs intact bilaterally, conjunctivae normal and no scleral icterus GENERAL EYE: appearance normal, both eyes and all related structures ALIGNMENT: Yes alignment normal CONJUNCTIVA: Yes conjunctivae normal SCLERA: sclerae normal PUPIL: Yes Equal, round and reactive pupils present Neck/C-Spine: COMMON NORMALS: no lymphadenopathy, supple, no JVD and Thyroid normal GENERAL: Yes normal visual inspection, Yes trachea midline and No Mass present (neck) THYROID: Thyroid normal CAROTIDS: Yes normal carotid upstroke CERVICAL SPINE: Yes cervical ROM normal Lymph: LYMPHATIC: no lymphadenopathy noted Chest: COMMONS NORMALS: normal inspection of the chest and normal palpation of entire chest wall CHEST: Yes Symmetrical chest wall rise, No mass, No tenderness, No Surgical scars present (Chest) and No rash BREAST/AXILLA INSPECTION: Yes normal inspection of the axillae Resp: COMMON NORMALS: clear to auscultation bilaterally EFFORT & INSPECTION : Yes able to speak in complete sentences, No respiratory distress and No labored AUSCULTATION: clear to auscultation bilaterally, no crackles, no rales, no rhonchi, no wheezes and vesicular breath sounds Cardio: COMMON NORMALS: no JVD, regular rate, regular rhythm, S1 normal heart sound present, S2 normal heart sound present and Peripheral pulses 2+ throughout PALPATION: normal PMI RATE: regular rate RHYTHM: regular rhythm HEART SOUNDS: S1 normal heart sound present, S2 normal heart sound present, no gallops and no murmurs BRUITS: no abdominal aortic bruits and no carotid bruits PERIPHERAL PULSES: Peripheral pulses 2+ throughout, radial pulses present, posterior tibial pulses present and dorsalis pedis present GI: COMMON NORMALS: Soft to palpation and No hepatosplenomegaly present AUSCULTATION: Yes normoactive bowel sounds PALPATION: Yes Soft to palpation, No Tenderness to palpation present (GI), No Guarding due to palpation present (GI), No Rigid due to palpation, Yes No hepatosplenomegaly present, No Pulsatile mass present and No Ascites present PERCUSSION: tympanic to percussion Extremity: GENERAL: No calf tenderness, No cyanosis, Yes edema and No pallor Neuro: COMMON NORMALS: patient oriented x3, CN's II-XII intact bilaterally, no focal motor deficits, no sensory deficits noted and gait normal SENSORI UM/ORIENTATION: Yes alert Psych: COMMON NORMALS: Normal thought process present and speech normal APPEARANCE: Yes well kempt SPEECH: Yes normal speech MOOD & AFFECT: Yes euthymic mood THOUGHT PROCESS: Normal thought process present THOUGHT CONTENT: Yes Normal thought content present Skin: HAIR: normal NAILS: normal and no clubbing Data : 06/18/20 05:24 06/19/20 04:18 A&P Assessment and plan (1) SVT (supraventricular tachycardia): Vagal maneuvers taught -I will start her on low dose metoprolol succinate 25 mg on discharge. -F/u with me in 3-4 weeks Status: Acute (2) Elevated troponin level: Likely NSTEMI type 2 -May continue ASA, statin. -Normal LV function and no RWMA on echo. -No ischemia on exercise MPI. Status: Acute (3) Fever: Status: Acute Qualifiers: Fever type: unspecified Qualified Code(s): R50.9 - Fever, unspecified Additional A&P Information Former smoker Thank you for allowing me to participate in patient's care. Please feel free to call with questions or concerns. Attestations Medical Necessity Statement*: stable to be discharged home. Coding Level of Care Code Acute [place] [employer] Operator for [facility] Fwd Diagnoses SVT (supraventricular tachycardia) I47.1 Elevated troponin level R77.8 Fever R50.9 Fever type: unspecified
--- NOTE | 2020-06-19 15:24 | NMCV_ITS ---
NM gary perf SPECT r/s* [id number] Marisa Iverson Age: 70 Gender: F : 1950 Exam Date: 06/19/2020 15:24 Ordering Phys: Laurie Lopez MD ([email or web address]) Technologist: MOA Diaz Exam Location: [facility] Indications: LOW BP, DIZZYNESS FAINTNESS STRESS TEST [facility] IMAGE PROTOCOL Rest/Stress 1 Exercise Day Radiopharmaceutical Dose (mCi) Administration Site Administered by Rest: Tc-99m 10.9 IV MAO Diaz Sestamibi Stress:Tc-99m 32.9 IV MAO Diaz Sestamibi Rest: 19-Jun-2020 60 Discovery 630 Stress: 19-Jun-2020 15 Discovery 630 Radiopharmaceutical was injected at 85 % maximum heart rate. Images obtained in supine and prone position. SPECT RESULTS Technical Quality: Excellent Raw Data Analysis: Normal Image Corrections: No attenuation or motion correction applied Summed Stress Score: 0 Summed Rest Score: 1 Summed Difference Score: 0 PERFUSION FINDINGS SPECT images demonstrate homogeneous tracer distribution throughout the myocardium. FUNCTIONAL RESULTS (calculated via Gated SPECT) Stress Image LV EF (%): 74 Stress EDV (mL):43 TID: 0.89 Stress ESV (mL):11 FUNCTIONAL FINDINGS: The left ventricle is normal in size. Transient Ischemia Dilatation of 0.89. There is normal left ventricular systolic function. The left ventricular ejection fraction is normal with a value of 74%. There is normal left ventricular wall thickening. Normal end diastolic and end systolic volumes. IMPRESSIONS 1. Myocardial perfusion imaging is normal. 2. Overall left ventricular systolic function is normal without regional wall motion abnormalities. 3. The left ventricular ejection fraction is normal with a value of 74%. 4. Scan indicates low risk for cardiac events. Laurie Lopez MD (Electronically Signed) Final Date: 19 June 2020 10:20 S
== END 2020-06-19 14:15 | disposition home or self-care (01) | DRG 282 ==
LOC: ER 17:34 → CSU 18:09
PROVIDERS: Family Medicine; Admitting Provider Family Medicine; Emergency Provider Family Medicine; PCP Family Medicine; Visit Provider Internal Medicine
DX: I47.1 Supraventricular tachycardia (principal); I21.A1 Myocardial infarction type 2; Z87.891 Personal history of nicotine dependence
CPT/HCPCS: 12345; 36415; 71045; 78452; 80053; 80061; 81001; 83735; 84100; 84145; 84439; 84443; 84484; 85025; 87086; 90471; 90732; 93005; 93017; 93306; 96372; 99283; A9500; G0378; J0153; J0696; J1650